=== PATIENT | male | born 1990 | race African-American/Black ===

== ENCOUNTER 2020-07-24 23:08 | Emergency (ER) | payer OTHER ==
[~2020-07-24] VITALS: Ht 175.3 cm; Wt 82.0 kg
[2020-07-24] MEDS ORDERED: IBUPROFEN 600MG TABLET PO ONE (23:45)
[2020-07-25 00:55] VITALS: BP 141/74
[2020-07-25] MEDS ORDERED: IBUP-2029 MT (01:09)
== END 2020-07-25 01:20 | disposition home or self-care (01) ==
LOC: ER 23:08
DX: M25.512 Pain in left shoulder (principal); R07.89 Other chest pain
CPT/HCPCS: 71045; 73030; 99284

== ENCOUNTER 2021-09-07 14:10 | Emergency (ER) | payer MEDICAID, OTHER ==
[~2021-09-07] VITALS: Ht 172.7 cm; Wt 91.0 kg
[~2021-09-07 14:10] MED LIST: IBUP-2029 MT
[2021-09-07 18:20] VITALS: BP 122/77
== END 2021-09-07 18:00 | disposition home or self-care (01) ==
LOC: ER 14:10
DX: S93.491A Sprain of other ligament of right ankle, initial encounter (principal); S20.219A Contusion of unspecified front wall of thorax, initial encounter; V06.90XA Pedestrian on foot injured in collision with other nonmotor vehicle, unspecified whether traffic or nontraffic accident, initial encounter; Y93.89 Activity, other specified; Y92.488 Other paved roadways as the place of occurrence of the external cause
CPT/HCPCS: 71045; 73600; 99284